=== PATIENT | female | born 1955 | race African-American/Black ===

== ENCOUNTER 2021-06-07 08:54 | Emergency (ER) | payer OTHER ==
[2021-06-07 09:57] VITALS: BP 152/87
--- NOTE | 2021-06-07 11:02 | XRay Report ---
CHEST 2 VIEWS INDICATION / CLINICAL INFORMATION: Cough. COMPARISON: None available. FINDINGS: SUPPORT DEVICES: None. HEART / MEDIASTINUM: No significant abnormality. LUNGS / PLEURA: The lungs are borderline hyperinflated but otherwise grossly clear. No suggestion for pneumonia, pleural effusion, or pulmonary edema. No pneumothorax. ADDITIONAL FINDINGS: No significant additional findings. IMPRESSION: 1. No acute pulmonary or pleural disease. Signer Name: Dhara Lau MD Signed: 06/07/2021 10:57 AM Workstation Name: [id number]
[2021-06-07 11:09] LABS: Basophils % (Auto) 0.5 % (0.0-1.8); Eosinophils % (Auto) 0.6 % (0.0-4.3); Hematocrit 43.9 % (30.3-42.9); Hemoglobin 15.1 gm/dl (10.1-14.3); Lymphocytes # (Auto) 1.6 K/mm3 (1.2-5.4); Lymphocytes % (Auto) 28.9 % (13.4-35.0); Mean Corpuscular HGB Conc 34 % (30-34); Mean Corpuscular Volume 90 fl (79-97); Monocytes # (Auto) 0.5 K/mm3 (0.0-0.8); Monocytes % (Auto) 8.1 % (0.0-7.3); Platelet Count 163 K/mm3 (140-440); Red Blood Count 4.87 M/mm3 (3.65-5.03); Red Cell Distribution Width 13.6 % (13.2-15.2)
[2021-06-07 11:25] LABS: Alanine Aminotransferase 12 units/L (7-56); Albumin 4.6 g/dL (3.9-5); Blood Urea Nitrogen 12 mg/dL (7-17); Calcium 9.6 mg/dL (8.4-10.2); Hemolysis Index 8
[2021-06-07 11:31] LABS: BUN/Creatinine Ratio 24
[2021-06-07] MEDS ORDERED: MECLIZINE 25 MG TAB PO ONE (11:38)
[2021-06-07] MEDS ORDERED: BUTALB/ACETAMINOPHEN/CAFFEINE TAB PO ONE (11:38)
--- NOTE | 2021-06-07 11:42 | Emergency Department Report ---
HPI - General Chief Complaint: Weakness Time Seen by Provider: 06/07/21 11:25 - HPI HPI: Room 33 The patient is a 58-year-old female present with chief complaint of shortness of breath and dizziness. The patient states for the past 4 days she has had s hortness of breath and subjective fever. Patient denies history of cough. Patient complains of pain in both feet and a headache. Patient also states she feels dizzy at times. Patient complains of feeling fatigued but denies chest pain/chest pressure/chest tightness ED Past Medical Hx - Past Medical History Previous Medical History?: Yes Additional medical history: Bronchitis - Surgical History Past Surgical History?: Yes Hx Cholecystectomy: Yes - Family History Family history: no significant - Social History Smoking Status: Current Every Day Smoker (1/2 pack/day) Substance Use Type: None - Medications Home Medications: Home Medications Medication Instructions Recorded Confirmed Last Taken Type Albuterol Mdi (or & Nicu Only) 2 puff IH QID PRN #8.5 gram 06/07/21 Unknown Rx [ProAir HFA Inhaler] Azithromycin [Zithromax Z-MARIANA] 0 mg PO DAILY #6 tab 06/07/21 Unknown Rx Meclizine [Antivert] 25 mg PO TID PRN #20 tablet 06/07/21 Unknown Rx Prednisone [predniSONE 10 mg 10 mg PO .TAPER #1 tab.ds.pk 06/07/21 Unknown Rx (6-Day Pack, 21 Tabs)] ED Review of Systems ROS: Stated complaint: FEELING WEAK, DIFFICULT WALKING Other details as noted in HPI Constitutional: fever (Subjective), malaise Eyes: denies: eye pain ENT: denies: throat pain Respiratory: shortness of breath. denies: cough Cardiovascular: denies: chest pain Endocrine: no symptoms reported Gastrointestinal: denies: nausea, vomiting Genitourinary: denies: dysuria Musculoskeletal: denies: back pain Neurological: headache Physical Exam - Physical Exam Vital Signs: Vital Signs 06/07/21 09:06 Temperature 98.6 F Pulse Rate 74 Respiratory 18 Rate Blood Pressure 152/87 O2 Sat by Pulse 99 Oximetry Physical Exam: GENERAL: The patient is well-developed well-nourished female sitting in chair not appearing to be in acute distress. [] HEENT: Normocephalic. Atraumatic. Extraocular motions are intact. Patient has moist mucous membranes. NECK: Supple. No meningitic signs are noted. Trachea midline CHEST/LUNGS: Clear to auscultation. There is no respiratory distress noted. HEART/CARDIOVASCULAR: Regular. There is no tachycardia. There is no gallop rub or murmur. ABDOMEN: Abdomen is soft, nontender. Patient has normal bowel sounds. There is no abdominal distention. SKIN: There is no rash. There is no edema. There is no diaphoresis. NEURO: The patient is awake, alert, and oriented. The patient is cooperative. The patient has no focal neurologic deficits. The patient has normal speech. Cranial nerves II through XII grossly intact. GCS 15 MUSCULOSKELETAL: There is no evidence of acute injury. ED Course Vital Signs 06/07/21 09:06 Temperature 98.6 F Pulse Rate 74 Respiratory 18 Rate Blood Pressure 152/87 O2 Sat by Pulse 99 Oximetry ED Medical Decision Making - Lab Data Result diagrams: 06/07/21 10:43 06/07/21 10:43 Laboratory Tests 06/07/21 06/07/21 06/07/21 10:43 10:43 10:43 WBC 5.6 RBC 4.87 Hgb 15.1 H Hct 43.9 H MCV 90 MCH 31 MCHC 34 RDW 13.6 Plt Count 163 Lymph % (Auto) 28.9 King % (Auto) 8.1 H Eos % (Auto) 0.6 Baso % (Auto) 0.5 Lymph # (Auto) 1.6 King # (Auto) 0.5 Eos # (Auto) 0.0 Baso # (Auto) 0.0 Seg Neutrophils % 61.9 Seg Neutrophils # 3.5 D-Dimer < 135.00 Sodium 138 Potassium 4.5 Chloride 99.9 Carbon Dioxide 30 Anion Gap 13 BUN 12 Creatinine 0.5 L Estimated GFR > 60 BUN/Creatinine Ratio 24 Glucose 114 H Calcium 9.6 Total Bilirubin 0.40 AST 26 ALT 12 Alkaline Phosphatase 93 Troponin T < 0.010 Total Protein 7.5 Albumin 4.6 Albumin/Globulin Ratio 1.6 TSH Free T4 Urine Color Urine Turbidity Urine pH Ur Specific [place] Urine Protein Urine Glucose (UA) Urine Ketones Urine Blood Urine Nitrite Urine Bilirubin Urine Urobilinogen Ur Leukocyte Esterase Urine WBC (Auto) Urine RBC (Auto) 06/07/21 06/07/21 10:43 12:45 WBC RBC Hgb Hct MCV MCH MCHC RDW Plt Count Lymph % (Auto) King % (Auto) Eos % (Auto) Baso % (Auto) Lymph # (Auto) King # (Auto) Eos # (Auto) Baso # (Auto) Seg Neutrophils % Seg Neutrophils # D-Dimer Sodium Potassium Chloride Carbon Dioxide Anion Gap BUN Creatinine Estimated GFR BUN/Creatinine Ratio Glucose Calcium Total Bilirubin AST ALT Alkaline Phosphatase Troponin T Total Protein Albumin Albumin/Globulin Ratio TSH 0.820 Free T4 1.53 H Urine Color Straw Urine Turbidity Clear Urine pH 7.0 Ur Specific [place] 1.006 Urine Protein <15 mg/dl Urine Glucose (UA) Neg Urine Ketones Neg Urine Blood Neg Urine Nitrite Neg Urine Bilirubin Neg Urine Urobilinogen < 2.0 Ur Leukocyte Esterase Neg Urine WBC (Auto) < 1.0 Urine RBC (Auto) 1.0 - EKG Data -: EKG Interpreted by Me EKG shows normal: sinus rhythm Rate: normal - EKG Data When compared to previous EKG there are: previous EKG unavailable Interpretation: other (No ischemic changes seen) - Radiology Data Radiology results: report reviewed (CT head, chest x-ray), image reviewed (CT head, chest x-ray) interpreted by me: Chest x-ray-no definite focal infiltrates, no pneumothorax [facility] [address] [place] [address] Cat Scan Report Signed Patient: MARIJA ROJAS MR#: [id number] : 1955 Acct:[id number] Age/Sex: 66 / F ADM Date: 06/07/21 Loc: ED Attending Dr: Ordering Physician: RAFIA OVALLE MD Date of Service: 06/07/21 Procedure(s): CT head/brain wo con Accession Number(s): [id number] cc: RAFIA OVALLE MD CT head/brain wo con INDICATION / CLINICAL INFORMATION: Headache, dizziness. TECHNIQUE: Axial CT imaging of the brain was obtained without contrast. Coronal and sagittal reformatted imaging obtained and reviewed. All CT scans at this location are performed using CT dose reduction for ALARA by means of automated exposure control. COMPARISON: None available. FINDINGS: CT imaging of the brain does not demonstrate any intracranial mass, hemorrhage, or midline shift. No extra axial fluid collection or suggestion of acute territorial infarction. Ventricular system and basilar cisterns are unremarkable. There is benign calcification noted within the basal ganglia bilaterally. There is mild cerebral and ce rebellar atrophy, age appropriate. The visualized paranasal sinuses and mastoid air cells are well aerated and clear. No calvarial abnormality noted. IMPRESSION: 1. No acute intracranial abnormality. Signer Name: Dhara Lau MD Signed: 06/07/2021 12:27 PM Workstation Name: [id number] Transcribed By: Dictated By: Dhara Lau MD Electronically Authenticated By: Dhara Lau MD Signed Date/Time: 06/07/21 1227 DD/ 1225 TD/TT: Print Cancel [facility] [address] [place] [address] XRay Report Signed Patient: MARIJA ROJAS MR#: [id number] : 1955 Acct:[id number] Age/Sex: 66 / F ADM Date: 06/07/21 Loc: ED Attending Dr: Ordering Physician: FRANCOISE GADRINER MD Date of Service: 06/07/21 Procedure(s): XR chest routine 2V Accession Number(s): [id number] cc: ED MD [id number] Fluoro Time In Minutes: CHEST 2 VIEWS INDICATION / CLINICAL INFORMATION: Cough. COMPARISON: None available. FINDINGS: SUPPORT DEVICES: None. HEART / MEDIASTINUM: No significant abnormality. LUNGS / PLEURA: The lungs are borderline hyperinflated but otherwise grossly clear. No suggestion for pneumonia, pleural effusion, or pulmonary edema. No pneumothorax. ADDITIONAL FINDINGS: No significant additional findings. IMPRESSION: 1. No acute pulmonary or pleural disease. Signer Name: Dhara Lau MD Signed: 06/07/2021 10:57 AM Workstation Name: [id number] Transcribed By: Dictated By: Dhara Lau MD Electronically Authent icated By: Dhara Lau MD Signed Date/Time: 06/07/21 105 DD/ 1056 TD/TT: Print Cancel - Differential Diagnosis Symptomatic anemia, hypothyroidism, PE, COVID-19, COPD, Critical care attestation.: If time is entered above; I have spent that time in minutes in the direct care of this critically ill patient, excluding procedure time. ED Disposition Clinical Impression: Shortness of breath, Vertigo, Subjective fever Disposition: DC-01 TO HOME OR SELFCARE Is pt being admited?: No Does the pt Need Aspirin: No Condition: Stable Instructions: Shortness of Breath, Adult, [id number], Dizziness, [id number] Additional Instructions: Return to the emergency department should you develop worsening symptoms, inability to tolerate food or liquids, high fever or any other concerns Prescriptions: Meclizine [Antivert] 25 mg PO TID PRN #20 tablet PRN Reason: Vertigo Prednisone [predniSONE 10 mg (6-Day Pack, 21 Tabs)] 10 mg PO .TAPER #1 tab.ds.pk Albuterol Mdi (or & Nicu Only) [ProAir HFA Inhaler] 2 puff IH QID PRN #8.5 gram PRN Reason: Shortness Of Breath Azithromycin [Zithromax Z-MARIANA] 0 mg PO DAILY #6 tab Referrals: PRIMARY CARE, [Referring] - 3-5 Days
--- NOTE | 2021-06-07 12:32 | Cat Scan Report ---
CT head/brain wo con INDICATION / CLINICAL INFORMATION: Headache, dizziness. TECHNIQUE: Axial CT imaging of the brain was obtained without contrast. Coronal and sagittal reformatted imaging obtained and reviewed. All CT scans at this location are performed using CT dose reduction for ALAR A by means of automated exposure control. COMPARISON: None available. FINDINGS: CT imaging of the brain does not demonstrate any intracranial mass, hemorrhage, or midline shift. No extra axial fluid collection or suggestion of acute territorial infarction. Ventricular system and ba silar cisterns are unremarkable. There is benign calcification noted within the basal ganglia bilater ally. There is mild cerebral and cerebellar atrophy, age appropriate. The visualized paranasal sinuses and mastoid air cells are well aerated and clear. No calvarial abnor mality noted. IMPRESSION: 1. No acute intracranial abnormality. Signer Name: Dhara Lau MD Signed: 06/07/2021 12:27 PM Workstation Name: [id number]
[2021-06-07 12:50] LABS: Free T4 (Free Thyroxine) 1.53 ng/dL (0.76-1.46)
[2021-06-07 12:56] LABS: Bilirubin,Urine NEG (Negative); Blood,Urine NEG (Negative); Color,Urine Straw (Yellow); Protein,Urine <15 mg/dL mg/dL (Negative); Urobilinogen,Urine < 2.0 mg/dL (<2.0)
[2021-06-07] MEDS ORDERED: SODIUM CHLORIDE 0.9% 1000 ML 1,000 ML IV ONE (12:59)
[2021-06-07 13:34] LABS: WBC,Urine < 1.0 /HPF (0.0-6.0)
--- NOTE | 2021-06-09 10:38 | Electrocardiograph Report ---
[facility] Test Date: 2021-06-07 Test Time: 12:23:31 Pat Name: MARIJA ROJAS Department: Room: Gender: F Stopper Maker: ZAHEER : 1955 Requested By: CARLOS CORADO Order Number: [id number] Reading MD: Augustine Marcus Measurements Intervals [place] Rate: 74 P: 80 DE: 146 QRS: 80 QRSD: 91 T: 32 QT: 407 QTc: 452 Interpretive Statements Sinus rhythm No previous ECG available for comparison Electronically Signed On 06-09-2021 10:37:33 EDT by Augustine Marcus
== END 2021-06-07 14:55 | disposition home or self-care (01) ==
LOC: EDBD → ED 08:54
DX: R06.02 Shortness of breath (principal); R42 Dizziness and giddiness; R50.9 Fever, unspecified; F17.200 Nicotine dependence, unspecified, uncomplicated; Z79.899 Other long term (current) drug therapy; Z90.49 Acquired absence of other specified parts of digestive tract
CPT/HCPCS: 36415; 70450; 71046; 80053; 81001; 84439; 84443; 84484; 85025; 85379; 93005; 96360; 99285; J7030

== ENCOUNTER 2022-06-13 11:44 | Emergency (ER) | payer OTHER ==
--- NOTE | 2022-06-13 12:49 | XRay Report ---
CHEST 2 VIEWS INDICATION: weakness. COMPARISON: 06/07/2021 FINDINGS: SUPPORT DEVICES: None. HEART: Within normal limits. LUNGS/PLEURA: No acute air space or interstitial disease. No pneumothorax. ADDITIONAL FINDINGS: None. IMPRESSION: 1. No acute findings. Signer Name: Frederic Gonzalez MD Signed: 06/13/2022 12:45 PM Workstation Name: [id number]
[2022-06-13 13:24] LABS: Basophils # (Auto) 0.1 K/mm3 (0.0-0.1); Basophils % (Auto) 1.6 % (0.0-1.8); Eosinophils # (Auto) 0.1 K/mm3 (0.0-0.4); Eosinophils % (Auto) 1.2 % (0.0-4.3); Hematocrit 41.7 % (30.3-42.9); Hemoglobin 14.1 gm/dl (10.1-14.3); Lymphocytes # (Auto) 1.7 K/mm3 (1.2-5.4); Mean Corpuscular HGB Conc 34 % (30-34); Mean Corpuscular Volume 89 fl (79-97); Monocytes # (Auto) 0.3 K/mm3 (0.0-0.8); Monocytes % (Auto) 7.1 % (0.0-7.3); Platelet Count 144 K/mm3 (140-440); Red Cell Distribution Width 13.3 % (13.2-15.2)
[2022-06-13 13:49] LABS: Alanine Aminotransferase 7 units/L (7-56); Albumin 4.2 g/dL (3.9-5); Blood Urea Nitrogen 15 mg/dL (7-17); Hemolysis Index 31
[2022-06-13] MEDS ORDERED: SODIUM CHLORIDE 0.9% 1000 ML 1,000 ML IV ONE (13:50)
[2022-06-13 14:02] LABS: BUN/Creatinine Ratio 21
[2022-06-13 15:24] LABS: Bilirubin,Urine NEG (Negative); Blood,Urine NEG (Negative); Color,Urine Colorless (Yellow); Protein,Urine <15 mg/dL mg/dL (Negative); Urobilinogen,Urine < 2.0 mg/dL (<2.0)
[2022-06-13 15:25] LABS: WBC,Urine < 1.0 /HPF (0.0-6.0)
--- NOTE | 2022-06-13 15:33 | Emergency Department Report ---
ED General Adult HPI - General Chief complaint: Medical Clearance Stated complaint: LOW BLOOD PRESSURE Time Seen by Provider: 06/13/22 13:35 Source: patient Mode of arrival: Ambulatory Limitations: No Limitations - History of Present Illness Initial comments: 67-year-old female with no past medical history presents to the emergency department for evaluation of few day history of progressive fatigue. She states that she is just not had the energy that she usually has for the last few days and when she checked her blood pressure at home this morning it was low. She denies chest pain, shortness of breath, fever, dizziness, nausea, vomiting, and diaphoresis. She denies any sick contacts. MD Complaint: Fatigue and low blood pressure -: Gradual, days(s) (3-4) Severity scale (0 -10): 0 Associated Symptoms: malaise. denies: confusion, chest pain, diaphoresis, fever/chills, headaches, loss of appetite, nausea/vomiting, rash, seizure, shortness of breath, syncope, weakness Treatments Prior to Arrival: none - Related Data Previous Rx's Medication Instructions Recorded Last Taken Type Albuterol Mdi (or & Nicu Only) 2 puff IH QID PRN #8.5 gram 06/07/21 Unknown Rx [ProAir HFA Inhaler] Azithromycin [Zithromax Z-MARIANA] 0 mg PO DAILY #6 tab 06/07/21 Unknown Rx Meclizine [Antivert] 25 mg PO TID PRN #20 tablet 06/07/21 Unknown Rx Prednisone [predniSONE 10 mg 10 mg PO .TAPER #1 tab.ds.pk 06/07/21 Unknown Rx (6-Day Pack, 21 Tabs)] Allergies Allergy/AdvReac Type Severity Reaction Status Date / Time No Known Allergies Allergy Verified 06/13/22 11:58 ED Review of Systems ROS: Stated complaint: LOW BLOOD PRESSURE Other details as noted in HPI Comment: All other systems reviewed and negative Constitutional: malaise. denies: chills, fever ENT: denies: congestion Respiratory: denies: cough, shortness of breath, SOB with exertion, SOB at rest, stridor, wheezing Cardiovascular: denies: chest pain, palpitations, dyspnea on exertion, orthopnea, edema, syncope, paroxysmal nocturnal dyspnea Gastrointestinal: denies: abdominal pain, nausea, vomiting, diarrhea, hematemesis, melena, hematochezia Genitourinary: denies: urgency, dysuria, frequency, hematuria, discharge Musculoskeletal: denies: back pain Skin: denies: rash, lesions Neurological: weakness. denies: headache, numbness, paresthesias, confusion, abnormal gait, vertigo ED Past Medical Hx - Past Medical History Additional medical history: Bronchitis - Surgical History Hx Cholecystectomy: Yes - Social History Smoking Status: Never Smoker Substance Use Type: None - Medications Home Medications: Home Medications Medication Instructions Recorded Confirmed Last Taken Type Albuterol Mdi (or & Nicu Only) 2 puff IH QID PRN #8.5 gram 06/07/21 Unknown Rx [ProAir HFA Inhaler] Azithromycin [Zithromax Z-MARIANA] 0 mg PO DAILY #6 tab 06/07/21 Unknown Rx Meclizine [Antivert] 25 mg PO TID PRN #20 tablet 06/07/21 Unknown Rx Prednisone [predniSONE 10 mg 10 mg PO .TAPER #1 tab.ds.pk 06/07/21 Unknown Rx (6-Day Pack, 21 Tabs)] ED Physical Exam - General Limitations: No Limitations General appearance: alert, in no apparent distress - Head Head exam: Present: atraumatic, normocephalic - Eye Eye exam: Present: normal appearance. Absent: conjunctival injection, periorbital swelling, periorbital tenderness - ENT ENT exam: Present: normal exam, normal orophraynx - Neck Neck exam: Present: normal inspection, full ROM. Absent: tenderness, lymphadenopathy - Respiratory Respiratory exam: Present: normal lung sounds bilaterally. Absent: respiratory distress, wheezes, rales, rhonchi, stridor, chest wall tenderness - Cardiovascular Cardiovascular Exam: Present: regular rate, normal heart sounds - GI/Abdominal GI/Abdominal exam: Present: soft, normal bowel sounds. Absent: distended, tenderness, guarding, rebound, rigid - Extremities Exam Extremities exam: Present: normal inspection, full ROM, normal capillary refill. Absent: tenderness, pedal edema, joint swelling, calf tenderness - Back Exam Back exam: Present: normal inspection. Absent: CVA tenderness (R), CVA tenderness (L), vertebral tenderness - Neurological Exam Neurological exam: Present: alert, oriented X3, CN II-XII intact, normal gait, reflexes normal. Absent: motor sensory deficit - Expanded Neurological Exam Expanded Patient oriented to: Present: person, place, time Speech: Present: fluid speech Cranial nerves: EOM's Intact: Normal, Gag Reflex: Normal, Tongue Deviation: Normal, Nystagmus: Normal, Facial Sensation: Normal Ataxia: Absent: yes Cerebellar function: Romberg: Normal Sensory exam: Upper Extremity Light Touch: Normal, Upper Extremity Temperature: Normal, Lower Extremity Light Touch: Normal, Lower Extremity Temperature: Normal Motor strength exam: RUE: 5, LUE: 5, RLE: 5, LLE: 5 Best Eye Response ([place]): (4) open spontaneously Best Motor Response ([place]): (6) obeys commands Best Verbal Response ([place]): (5) oriented [place] Total: 15 - Psychiatric Psychiatric exam: Present: normal affect, normal mood - Skin Skin exam: Present: warm, dry, intact, normal color ED Course Vital Signs 06/13/22 06/13/22 06/13/22 11:57 14:15 16:53 Temperature 98.2 F 98.5 F 98.4 F Pulse Rate 90 88 75 Respiratory 18 16 16 Rate Blood Pressure 133/86 Blood Pressure 103/74 113/86 [Left] O2 Sat by Pulse 96 99 100 Oximetry - Reevaluation(s) Reevaluation #1: 06/13/22 15:55 Patient states that she feels much better. ED Medical Decision Making - Lab Data Result diagrams: 06/13/22 12:53 06/13/22 12:53 - Radiology Data Radiology results: report reviewed, image reviewed Chest x-ray: FINDINGS: SUPPORT DEVICES: None. HEART: Within normal limits. LUNGS/PLEURA: No acute air space or interstitial disease. No pneumothorax. ADDITIONAL FINDINGS: None. IMPRESSION: 1. No acute findings. - Medical Decision Making 67-year-old female with no past medical history presents to the emergency department for evaluation of few day history of progressive fatigue. She states that she is just not had the energy that she usually has for the last few days and when she checked her blood pressure at home this morning it was low. She denies chest pain, shortness of breath, fever, dizziness, nausea, vomiting, and diaphoresis. She denies any sick contacts. Physical exam unremarkable. Workup unremarkable. Patient feels better. She will be discharged home to follow up with her pcp for further evaluation and management or return to ED as needed. She verbalized understanding of and agreement with plan of care. Critical care attestation.: If time is entered above; I have spent that time in minutes in the direct care of this critically ill patient, excluding procedure time. ED Disposition Clinical Impression: Fatigue Qualifiers: Fatigue type: unspecified Qualified Code(s): R53.83 - Other fatigue Disposition: 01 HOME / SELF CARE / HOMELESS Is pt being admited?: No Does the pt Need Aspirin: No Condition: Stable Instructions: Health Maintenance After Age 65, Fatigue Additional Instructions: Get plenty of rest. Increase intake of noncaffeinated fluids. Follow-up with your primary care provider for further evaluation. Return to the emergency department as needed. Referrals: BABITA ASENCIO MD [Staff Physician] - 3-5 Days Time of Disposition: 15:56
[2022-06-13 16:56] VITALS: BP 113/86
== END 2022-06-13 16:54 | disposition home or self-care (01) ==
LOC: ED 11:44
DX: R53.83 Other fatigue (principal); Z90.49 Acquired absence of other specified parts of digestive tract
CPT/HCPCS: 36415; 71046; 80053; 81001; 84443; 84484; 85025; 96360; 99284; J7030; 99283